=== PATIENT | female | born 1955 | race Caucasian/White ===

== ENCOUNTER 2019-03-13 06:09 | Observation (INO) | payer OTHER ==
[2019-03-13] MEDS ORDERED: ENOXAPARIN SODIUM 40 MG/0.4 ML DISP.SYRIN SQ ONE (06:39)
[2019-03-13] MEDS ORDERED: SCOPOLAMINE HYDROBROMIDE 1.5MG/72HR PATCH TD ONE (06:39)
[2019-03-13] MEDS ORDERED: FAMOTIDINE 20 MG/2 ML VIAL IV ONE ×2 (06:40→08:48)
[2019-03-13] MEDS ORDERED: BUPIV. HCL 0.25% (2.5MG/ML)/EPI. (1:200,000) PF 30 ML VIAL IJ ONE (08:48)
[2019-03-13] MEDS ORDERED: LIDOCAINE HCL 2% PF 100MG/5ML VIAL IJ ONE (08:48)
[2019-03-13] MEDS ORDERED: DEXAMETHASONE SODIUM PHOSPHATE 10 MG/ML VIAL ONE (08:48)
[2019-03-13] MEDS ORDERED: SODIUM CHLORIDE IRRIG SOLUTION 3,000 ML IRRIG.SOLN IR ONE (08:48)
[2019-03-13] MEDS ORDERED: ceFAZolin SODIUM 1 GM VIAL ONE (08:48)
[2019-03-13] MEDS ORDERED: MIDAZOLAM HCL 2 MG/2 ML VIAL ONE (08:48)
[2019-03-13] MEDS ORDERED: LEVALBUTEROL NEB 1.25 MG/3 ML VIAL.NEB NEB ONE (08:48)
[2019-03-13] MEDS ORDERED: LIDOCAINE HCL 1% PF 300MG/30ML VIAL ONE (08:48)
[2019-03-13] MEDS ORDERED: ROCURONIUM BROMIDE 10 MG/ML 5ML VIAL ONE (08:48)
[2019-03-13] MEDS ORDERED: SUGAMMADEX SODIUM 200 MG/2 ML VIAL IV ONE (08:48)
[2019-03-13] MEDS ORDERED: SEVOFLURANE 250 ML LIQUID IH ONE (08:48)
[2019-03-13] MEDS ORDERED: PROPOFOL 200 MG/20 ML VIAL IV ONE (08:48)
[2019-03-13] MEDS ORDERED: HYDROmorphone HCL/PF 1 MG/ML VIAL ONE (09:42)
[2019-03-13] MEDS ORDERED: ONDANSETRON HCL/PF 4 MG/ 2ML VIAL IVP PRN (10:34)
[2019-03-13] MEDS ORDERED: HYDROcodone-ACETAMIN 7.5-325/15ML SOLN UD CUP PO PRN (10:34)
[2019-03-13 10:38] VITALS: BMI 32.1
--- NOTE | 2019-03-13 10:51 | History and Physical Report ---
History of Present Illnes - History of Present Illness Reason for Visit: S/P GASTRIC BAND REMOVAL WITH HIATAL HERNIA REPAIR History of Present Illness: Patient is a 63-year-old female who has tried multiple diets and exercise programs with no success. She has always struggled with her weight. She has tried many diet plans, diet pills, and walking and has not been able to keep it off. Patient and surgeon decided to proceed with gastric band procedure in 2016- patient lost 80 pounds but started having trouble with swallowing and vomiting. It was decided to remove the band. Procedure went well- patient will be monitored in observation status s/p surgical intervention with hiatal hernia rep air. Patient has been on a liquid diet prior to surgery so she is a risk of dehydration s/p surgery. She will be admitted for IV hydration to help hydrate patient until she is able to tolerate a sufficient oral intake, will treat pain with IV medication until patient is able to tolerate oral meds, IV antiemetics to help reduce episodes of nausea and/or vomiting. Patient will be monitored closely using telemetry. - Past Medical History Gastrointestinal: GERD Psych: Anxiety Endocrine: Hypothyroidism, obesity - Past Surgical History Past Surgical History: Cystoscopy, Hysterectomy, Other (Rotator Cuff Repair), Other (Lap Band 2016) - Past Social History Smoke: 1 pack per day Alcohol: None Drugs: None Lives: With Family Domestic Violence: Negative - Health Maintenance Health Maintenance: Cholesterol. denies: Influenza Vaccine Influenza Vaccine: No Pneumonia Vaccine: No Resuscitation Status: Resusciation Status Resuscitation Status Full Code - Unable to Obtain History Unable to Obtain: No Review of Systems - Review of Systems Constitutional: negative: Fever, Chills Eyes: negative: conjunctivae inflammation ENT: negative: Throat Pain Respiratory: negative: Shortness of Breath Cardiovascular: negative: Chest Pain Gastrointestinal: Abdominal Pain. negative: Nausea, Vomiting Genitourinary: negative: Dysuria Musculoskeletal: negative: Back Pain Skin: Other (incision sites x 5). negative: Rash Neurological: negative: Weakness - Medications/Allergies Allergies/Adverse Reactions: Allergies Allergy/AdvReac Type Severity Reaction Status Date / Time No Known Allergies Allergy Unverified 03/13/19 10:34 Home Medications: Home Medications Atorvastatin Calcium 10 mg PO HS 03/13/19 Clonazepam 2 mg PO BID 03/13/19 Levothyroxine Sodium 88 mcg PO 0700 03/13/19 Omeprazole 40 mg PO BID 03/13/19 Venlafaxine HCl [Venlafaxine HCl ER] 75 mg PO DAILY 03/13/19 Venlafaxine HCl [Venlafaxine HCl ER] 150 mg PO DAILY 03/13/19 Current Inpatient Medications: Current Inpatient Medications Hydrocodone Bitart/Acetaminophen (Hycet 7.5-325mg/15 Ml Ud Cup) 30 ml PO Q4 PRN PRN Reason: Moderate Pain (Score 5-7) Stop: 03/17/19 10:33 Atorvastatin Calcium (Lipitor) 10 mg PO HS [facility] Cefazolin Sodium/Dextrose (Ancef 1 Gm/50 Ml-Dextrose) 1 gm IV Q8H [facility] Stop: 03/14/19 00:31 Clonazepam (Klonopin) 2 mg PO BID [facility] Famotidine (Pepcid) 20 mg IVP BID [facility] Stop: 03/17/19 20:59 Sodium Chloride (Normal Saline) 1,000 mls @ 150 mls/hr IV Q8H [facility] Levothyroxine Sodium (Synthroid) 88 mcg PO 0700 [facility] Miscellaneous (Venlafaxine Hcl [Venlafaxine Hcl Er]) 75 mg PO DAILY [facility] Ondansetron HCl (Zofran) 4 mg IVP Q6H PRN PRN Reason: Nausea / Vomiting Stop: 03/17/19 10:33 Exam - Exam Vital Signs: Vital Signs (72 hours) 03/13/19 03/13/19 10:34 10:36 Temperature 97.7 F 97.7 F Pulse Rate [ 93 H 93 H Right Pulse ox] Respiratory 20 20 Rate Blood Pressure 143/74 143/74 [Right Arm] O2 Sat by Pulse 96 96 Oximetry General: Alert, Oriented to Person, Oriented to Place, Oriented to Time, Cooperative, Mild distress, Obese HEENT: PERRLA, Mouth Mucous membr. moist/[place], Nose Mucous membr. moist/[place] Neck: Normal Range of Motion Carotids: no bruit Lungs: Clear to auscultation, Normal air movement, Speaks full Sentences Cardiovascular: Regular rate, Normal S1, Normal S2 Peripheral Edema: none Peripheral Pulses: 2+ Abdomen: Normal bowel sounds, Soft Integumentary: Dry, Pale, Other (Incision site dressings dry/intact) Extremities: No edema, Normal pulses, No tenderness/swelling Neurological: Normal speech, Strength Equal Bilat, Normal tone, Sensation intact Psych/Mental Status: Mental status NL, Mood NL, Appropriate Affect, Intact J udgment Assessment/Plan - Assessment/Plan (1) S/P gastric surgery Status: Acute Current Visit: Yes Plan: Plan to admit for IV hydration, IV pain meds, and IV antiemetics. SCDs to help prevent DVTs, IS and frequent ambulation will be implemented. Start ice chips a nd advance diet as tolerated to full liquids. Will hold lovenox and toradol due to hiatal hernia repair (2) Hypothyroid Status: Acute Current Visit: Yes Plan: Will continue home meds (3) Anxiety Status: Acute Current Visit: Yes Plan: Will continue home meds (4) Hiatal hernia Status: Acute Current Visit: Yes Plan: Plan to admit for IV hydration, IV pain meds, and IV antiemetics. SCDs to help prevent DVTs, IS and frequent ambulation will be implemented. Start ice chips and advance diet as tolerated to full liquids. Will hold lovenox and toradol due to hiatal hernia repair VTE Assessment - RISK FACTOR SCORE VTE RISK FACTOR SCORES: AGE OVER 60 YEARS, OBESITY, SMOKER, MINOR SURGERY/ ANESTHESIA TIME < 1 HOUR - RISK VTE HIGH RISK: SCORE OF 3-4 (RISK PROXIMAL DVT 4-8%) PROPHYLAXIS NEEDED (Frequent ambulation, SCDs while in bed, IS)
[2019-03-13] MEDS ORDERED: NICOTINE 14mg PATCH.TD24 TD PRN (11:15)
[2019-03-13] MEDS: 0.9 % SODIUM CHLORIDE 1,000 ML IV SCH ×3 (11:57→18:38)
[2019-03-13] MEDS ORDERED: ATORVASTATIN CALCIUM 10 MG TABLET PO SCH (21:00)
[2019-03-13] MEDS: FAMOTIDINE 20 MG/2 ML VIAL IVP SCH (21:41)
[2019-03-13] MEDS: clonazePAM 0.5 MG TABLET PO SCH (21:41)
[2019-03-14] MEDS: 0.9 % SODIUM CHLORIDE 1,000 ML IV SCH ×2 (02:02→02:05)
--- NOTE | 2019-03-14 06:34 | Discharge Summary ---
Discharge Summary - Discharge [facility] Admission Date: 03/13/19 Discharge Date: 03/14/19 History of Present Illness: Patient is a 63-year-old female who has tried multiple diets and exercise programs with no success. She has always struggled with her weight. She has tried many diet plans, diet pills, and walking and has not been able to keep it off. Patient and surgeon decided to proceed with gastric band procedure in 2015- patient lost 80 pounds but started having trouble with swallowing and vomiting. It was decided to remove the band. Procedure went well- patient will be monitored in observation status s/p surgical intervention with hiatal hernia repair. Patient has been on a liquid diet prior to surgery so she is a risk of dehydration s/p surgery. She will be admitted for IV hydration to help hydrate patient until she is able to tolerate a sufficient oral intake, will treat pain with IV medication until patient is able to tolerate oral meds, IV antiemetics to help reduce episodes of nausea and/or vomiting. Patient will be monitored closely using telemetry. Condition at Discharge: Stable Home Medications: Ambulatory Orders Medication Instructions Recorded Atorvastatin Calcium 10 mg PO HS 03/13/19 Clonazepam 2 mg PO BID 03/13/19 Levothyroxine Sodium 88 mcg PO 0700 03/13/19 Omeprazole 40 mg PO BID 03/13/19 Venlafaxine HCl [Venlafaxine HCl 75 mg PO DAILY 03/13/19 ER] Venlafaxine HCl [Venlafaxine HCl 150 mg PO DAILY 03/13/19 ER] Consultations this Visit: None Procedures this Visit: None Allergies/Adverse Reactions: Allergies Allergy/AdvReac Type Severity Reaction Status Date / Time No Known Allergies Allergy Unverified 03/13/19 10:34 Discharge Summary: Patient is status post band removal and hiatal hernia repair. She had it placed in 2015 and lost 80 pounds. The procedure went well. She has been very cooperative with her care by ambulating frequently, using her incentive spirometer, and wearing her SCDs while in bed. She has been compliant with her diet during hospitalization. She is having minimal discomfort at this time and minimal nausea- she has is passing gas and belching. She is aware of discharge instructions and what she can and cannot do post surgical- she is aware of how to advance diet after procedure. She has family support and family will be taking her home- medications written by surgeon given to patient. She feels ready to go home. Hospital Course: Patient received pain medications, antiemetics, and IVF and was transitioned to oral. She has been up ambulating and using incentive spirometer. - Final Diagnosis (1) S/P gastric surgery Problems: Band removed with hiatal hernia repair- pt tolerated well. Right or Left: Right (2) Hypothyroid Problems: Stable Right or Left: Right (3) Anxiety Problems: Stable Right or Left: Right (4) Hiatal hernia Problems: Repaired Right or Left: Right
[2019-03-14] MEDS ORDERED: LEVOTHYROXINE SODIUM 88 MCG TABLET PO SCH (07:00)
[2019-03-14 08:19] VITALS: BP 115/71
[2019-03-14] MEDS: clonazePAM 0.5 MG TABLET PO SCH (08:38)
[2019-03-14] MEDS: FAMOTIDINE 20 MG/2 ML VIAL IVP SCH (08:39)
[2019-03-14] MEDS ORDERED: VENLAFAXINE HCL 75 MG PO SCH (09:00)
[2019-03-14] MEDS ORDERED: VENLAFAXINE HCL 37.5 MG CAP.ER.24H PO SCH (09:00)
--- NOTE | 2019-03-17 10:10 | Operative Note ---
PREOPERATIVE DIAGNOSIS: Failed lap band. POSTOPERATIVE DIAGNOSIS: 1. Failed lap band. 2. Hiatal hernia. PROCEDURES PERFORMED: 1. Laparoscopic removal of lap band and port removal. 2. Laparoscopic repair of hiatal hernia. 3. Upper gastrointestinal endoscopy. 4. Laparoscopic repair of gastrotomy. SURGEON: Phil Mendez M.D. INDICATIONS FOR PROCEDURE: Ms. South is a 63-year-old female who had a lap band placed elsewhere three years ago. However, she started to have persistent nausea and vomiting, especially after her meals, and this continued to persist even after un-filling the band. The patient was advised removal of the lap band; however, if she gains weight down the line, she wishes to pursue laparoscopic sleeve gastrectomy as well. DESCRIPTION OF PROCEDURE: After explaining to the patient in detail and informed consent was obtained, the patient was identified in the preoperative holding area. The patient was transferred to the operating room and was placed in supine position. Sequential compressive devices were placed for DVT prophylaxis. Preoperative antibiotics were given. After induction of anesthesia, the abdomen was prepped and draped in a sterile fashion. Through a left upper quadrant 1-cm incision, and using Optiview technique, the peritoneal cavity was entered and pneumoperitoneum created. Thereafter, under direct vision, a 5-mm trocar was placed in the left midabdomen. I had to take down a few adhesions in the upper abdomen to facilitate placement of the other ports. A few adhesions were taken down from the upper abdomen using the ENSEAL. I then placed a 15-mm port in the right midabdomen and another 5-mm trochar was placed in the right subcostal region. Through a 1-cm incision in the epigastrium, a Mark retractor was introduced and the left lobe of the liver was retracted. On initial inspection, there was some scarring noted over the lap band. The adhesions over the lap band were gently dissected off. The lap band was unbuckled and the tubing was divided distal to the hub. The lap band was then removed. I did a capsulectomy on the left side. The gastrogastric plication was gently dissected off. During the dissection, I created a 1-cm gastrotomy. This was closed in two layers using 2-0 Ethibond sutures. Prior to starting the procedure, I did an upper GI endoscopy and I had a suspicion that the patient had a hiatal hernia. The GE junction was noted to be at about 32 cm and there were features suggestive of hiatal hernia. Therefore, I dissected along the left crura. The sac was gently dissected off. I did a circumferential dissection on the left and right crura anteriorly and then posteriorly. After adequate mobilization was done, and had the GE junction well within the abdomen, I then placed a single suture using 2-0 Ethibond and an Endo Stitch posteriorly. Two other sutures were placed on the esophagus and the left and right crura separately to prevent any recurrence of the hernia. Thorough saline irrigation was given. At this point, I repeated the upper GI endoscopy. The scope was introduced into the esophagus and was gradually advanced into the stomach. The GE junction at this point was noted to be at about 37 cm. There were no features to suggest a hiatal hernia. I did an air leak test to make sure there was no leak from the gastrotomy site. The scope was then removed. Absolute hemostasis was ensured. Thorough saline irrigation was given. The Mark retractor was removed. The port site incision was extended by another 2 cm. The port was identified and was gently dissected off the surrounding capsule. The port was removed. This wound was then closed in two layers using 0 Vicryl for the subcutaneous tissues. The skin was closed with 4-0 Monocryl for all the incisions. Dermabond was applied. The patient was stable at the end of the procedure. The patient was awakened from anesthesia and was transferred to the recovery room in stable condition. ESTIMATED BLOOD LOSS: Approximately 25 mL. CONDITION OF THE PATIENT: Stable. FLUIDS GIVEN: Per Anesthesia note. SPECIMEN(S) SENT: Lap band. COMPLICATIONS: Gastrotomy x 1. ANESTHESIA: General. Phil Mendez M.D. DEMETRIO/juan diego (Please copy [facility] provider when applicable) Job #[id number] ILANA
== END 2019-03-14 10:15 | disposition home or self-care (01) ==
LOC: OPSURG 06:09 → SOUTH 10:10
PROVIDERS: ADMIT Nurse Practitioner Family; ATTEND Nurse Practitioner Family
DX: K95.09 Other complications of gastric band procedure (principal); K91.71 Accidental puncture and laceration of a digestive system organ or structure during a digestive system procedure; K44.9 Diaphragmatic hernia without obstruction or gangrene; K66.0 Peritoneal adhesions (postprocedural) (postinfection); R11.2 Nausea with vomiting, unspecified
CPT/HCPCS: 43235; 43281; 43774; A9270; G0378; J0690; J1170; J1650; J2001; J2250; J2704; J7030; J7614

== ENCOUNTER 2019-09-04 07:59 | Day surgery (SDC) | payer OTHER ==
[2019-09-04] MEDS ORDERED: SEVOFLURANE 250 ML LIQUID IH ONE (08:48)
[2019-09-04] MEDS ORDERED: ceFAZolin SODIUM 1 GM VIAL ONE (08:48)
[2019-09-04] MEDS ORDERED: SODIUM CHLORIDE IRRIG SOLUTION 3,000 ML IRRIG.SOLN IR ONE (08:48)
[2019-09-04] MEDS ORDERED: LIDOCAINE HCL 2% PF 100MG/5ML VIAL IJ ONE (08:48)
[2019-09-04] MEDS ORDERED: DEXAMETHASONE SODIUM PHOSPHATE 10 MG/ML VIAL ONE (08:48)
[2019-09-04] MEDS ORDERED: ROCURONIUM BROMIDE 10 MG/ML 5ML VIAL ONE (08:48)
[2019-09-04] MEDS ORDERED: LABETALOL HCL 20 MG/4 ML SYRINGE IV ONE (08:48)
[2019-09-04] MEDS ORDERED: PHENYLEPHRINE HCL 10 MG/1 ML ONE (08:48)
[2019-09-04] MEDS ORDERED: LIDOCAINE HCL 1% PF 300MG/30ML VIAL ONE (08:48)
[2019-09-04] MEDS ORDERED: PROPOFOL 200 MG/20 ML VIAL IV ONE (08:48)
[2019-09-04] MEDS ORDERED: MIDAZOLAM HCL 2 MG/2 ML VIAL ONE (08:48)
[2019-09-04] MEDS ORDERED: SUGAMMADEX SODIUM 200 MG/2 ML VIAL IV ONE (08:48)
[2019-09-04] MEDS ORDERED: BUPIV. HCL 0.25% (2.5MG/ML)/EPI. (1:200,000) PF 10 ML VIAL IM ONE (08:48)
[2019-09-04] MEDS ORDERED: ONDANSETRON HCL/PF 4 MG/ 2ML VIAL ONE (08:48)
[2019-09-04] MEDS ORDERED: LACTATED RINGERS 1,000 ML IV ONE (11:15)
[2019-09-04] MEDS ORDERED: HYDROmorphone HCL/PF 1 MG/ML VIAL ONE (11:44)
--- NOTE | 2019-09-08 17:37 | Operative Note ---
PROCEDURE DATE: 09/04/2019 PREOPERATIVE DIAGNOSIS: 1. Morbid obesity. 2. Gastroesophageal reflux disease. 3. Hyperlipidemia. POSTOPERATIVE DIAGNOSIS: 1. Morbid obesity. 2. Gastroesophageal reflux disease. 3. Hyperlipidemia. PROCEDURES PERFORMED: 1. Laparoscopic vertical sleeve gastrectomy. 2. Laparoscopic lysis of adhesions. 3. Upper gastrointestinal endoscopy. SURGEON: Phil Mendez M.D. INDICATIONS FOR PROCEDURE: Ms. South is a 63-year-old female who presented with features of morbid obesity. She has a history of lap band placement which was removed a few months ago. She also has gastroesophageal reflux disease and hyperlipidemia. She was noted to have a weight of 227 pounds with a BMI of 42.7 with the above-listed comorbidities. The patient was advised laparoscopic vertical sleeve gastrectomy. The patient showed understanding and agreed to proceed. DESCRIPTION OF PROCEDURE: After explaining to the patient in detail and informed consent was obtained, the patient was identified in the preoperative holding area. The patient was transferred to the operating room and was placed in supine position. Sequential compressive devices were placed for DVT prophylaxis. Preoperative antibiotics were given. After induction of anesthesia, the abdomen was prepped and draped in a sterile fashion. Through a left upper quadrant 1-cm incision, and using Optiview technique, the peritoneal cavity was entered and pneumoperitoneum was created. Thereafter, under direct vision, another 5-mm trocar was placed in the left midabdomen and another 15-mm trocar was placed in the right midabdomen. Through a 1-cm incision in the right subcostal region, another 5-mm trocar was placed. Through a 1-cm incision in the epigastrium, a Mark retractor was introduced and the left lobe of the liver was retracted. On initial inspection, the patient was noted to have no evidence of hiatal hernia. I took down the gastroepiploic vessels using a LigaSure. This was continued superiorly. The short gastric vessels were taken down. The gastrophrenic ligament was divided and the Angle of His was mobilized. The posterior attachments of the stomach on the pancreas were released. Distally, the gastroepiploic vessels were taken down up to about 4 cm proximal to the pylorus. At this point, a #38 Romansh Hurst Bougie was introduced into the stomach and was placed along the lesser curve. The stomach was then divided in a vertical fashion with multiple Endo ONESIMO Covidien Black Load Staplers. The first firing was directed outwards towards the greater curvature. Subsequent firings were directed towards the Angle of His to create a loose sleeve around the #38 Romansh bougie. The bougie was then removed and an upper GI endoscopy was performed at this point. The scope was introduced into the esophagus and was gradually advanced into the stomach. The GE junction appeared normal. The sleeve size appeared normal. No evidence of any active bleeding was noted. The stomach was insufflated with air and irrigation of fluid along the staple line revealed no evidence of air leak. The stomach was then suctioned out and the scope was removed. Absolute hemostasis was ensured. Thorough saline irrigation was given. The Mark retractor was removed. Approximately 10 mL of a lidocaine- Marcaine mix was instilled under the left hemidiaphragm. The sleeve gastrectomy specimen was removed. The abdomen was then deflated. The incisions were closed with 4-0 Monocryl. Dermabond was applied. Approximately 10 mL of a lidocaine- Marcaine mix was injected into all the incisions. The patient was awakened from anesthesia and was transferred to the recovery room in stable condition. The patient was noted to have a few adhesions in the upper part of the stomach from the previous lap band surgery initially which had to be taken down using sharp and blunt dissection. There was a small 2-cm liver laceration during this part of the dissection, which there was no active bleeding that was noted. ESTIMATED BLOOD LOSS: Approximately 20 mL. CONDITION OF THE PATIENT: Stable. FLUIDS GIVEN: Per Anesthesia note. SPECIMEN(S) SENT: Sleeve gastrectomy specimen. COMPLICATIONS: None. ANESTHESIA: General. Phil Mendez M.D. DEMETRIO/juan diego (Please copy [facility] provider when applicable) Job #[id number] ILANA
== END 2019-09-04 12:20 | disposition other institution (70) ==
LOC: OPSURG 07:59
PROVIDERS: ATTEND Surgery
DX: E66.01 Morbid (severe) obesity due to excess calories (principal); Z68.41 Body mass index [BMI] 40.0-44.9, adult; I10 Essential (primary) hypertension; K21.9 Gastro-esophageal reflux disease without esophagitis; E78.5 Hyperlipidemia, unspecified
CPT/HCPCS: 43235; 43775; 88305; J0690; J1170; J2001; J2250; J2370; J2405; J2704; J7120

== ENCOUNTER 2019-09-04 12:21 | Inpatient (IN) | payer OTHER ==
[2019-09-04] MEDS ORDERED: PROMETHAZINE HCL 25 MG in 0.9 % SODIUM CHLORIDE 50 ML IV PRN (12:27)
[2019-09-04] MEDS ORDERED: HYDROcodone-ACETAMIN 7.5-325/15ML SOLN UD CUP PO PRN (12:27)
[2019-09-04] MEDS ORDERED: IPRATROPIUM/ALBUTEROL SULFATE 3 ML AMPUL.NEB NEB PRN (12:27)
[2019-09-04] MEDS ORDERED: ONDANSETRON HCL/PF 4 MG/ 2ML VIAL IVP PRN (12:27)
[2019-09-04] MEDS ORDERED: MORPHINE SULFATE 2 MG/ML VIAL IV PRN (12:27)
--- NOTE | 2019-09-04 12:32 | History and Physical Report ---
History of Present Illnes - History of Present Illness Reason for Visit: S/P LSG History of Present Illness: Patient is a 63-year-old female who has tried multiple diets and exercise programs with no success. She has always struggled with her weight ever since having children. She has had the gastric band with no success. Patient and surgeon decided to proceed with gastric sleeve procedure. Procedure went well- Patient has been on a liquid diet prior to surgery so she is a risk of dehydration s/p surgery. She will be admitted for IV hydration to help hydrate patient until he is able to tolerate a sufficient oral intake, will treat pain with IV medication until patient is able to tolerate oral meds, IV antiemetics to help reduce episodes of nausea and/or vomiting. Patient will be monitored closely using telemetry s/p surgery d/t shortness of breath on exertion. Will encourage incentive spirometer for morbid obesity and SOA. Will also monitor Patient appears very uncomfortable s/p surgery. - Past Medical History Cardiac: Hyperlipidemia Pulmonary: Other (SOA with exertion) Gastrointestinal: GERD Psych: Anxiety Endocrine: Hypothyroidism, obesity Grav: 2 Para: 2 - Past Surgical History Past Surgical History: Cystoscopy, Hysterectomy, Other (Rotator Cuff Repair), Other (Lap Band 2016) - Past Family History Mother Family History: DM, Hyperlipidemia, Other (Obesity) Father Family History: CAD - Past Social History Smoke: 1 pack per day, Quit (06/2019) Alcohol: None Drugs: None Lives: With Family Domestic Violence: Negative - Health Maintenance Health Maintenance: Cholesterol. denies: Influenza Vaccine Influenza Vaccine: No Pneumonia Vaccine: No Resuscitation Status: Resusciation Status Resuscitation Status Full Code Review of Systems - Review of Systems Constitutional: negative: Fever, Chills Eyes: negative: pain ENT: negative: Nose Discharge, Throat Pain Respiratory: SOB with Excertion Cardiovascular: negative: Chest Pain, Light Headedness Gastrointestinal: Nausea, Vomiting, Abdominal Pain Genitourinary: negative: Dysuria Musculoskeletal: negative: Back Pain Skin: Other (abdominal incisions ) Neurological: Weakness - Medications/Allergies Allergies/Adverse Reactions: Allergies Allergy/AdvReac Type Severity Reaction Status Date / Time No Known Allergies Allergy Unverified 03/13/19 10:34 Home Medications: Home Medications Ergocalciferol (Vitamin D2) [Vitamin D2] 50,000 unit PO WEEK 10/24/19 Exam - Exam General: Alert, Oriented to Person, Oriented to Place, Moderate distress, Morbidly Obese HEENT: Atraumatic, PERRLA, Mouth Mucous membr. moist/[place], Nose Mucous membr. moist/[place] Neck: Normal Range of Motion Carotids: No bruit Lungs: Clear to auscultation, Normal air movement Cardiovascular: Regular rate, Normal S1, Normal S2 Peripheral Edema: None Abdomen: Soft Integumentary: Warm, Dry, Pale, Other (abdominal incisions x 5 without redness/erythema/drainage; skin adhesive intact) Extremities: No edema, Normal pulses, No tenderness/swelling Neurological: Strength Equal Bilat, Generalized Weakness Psych/Mental Status: Mental status NL, Mood NL, Appropriate Affect, Intact Judg ment Assessment/Plan - Assessment/Plan (1) S/P laparoscopic sleeve gastrectomy Status: Acute Current Visit: Yes Plan: Plan to admit for IV hydration, IV pain meds, and IV antiemetics. Lovenox and SCDs to help prevent DVTs, IS and frequent ambulation will be implemented. Start ice chips and advance diet as tolerated. IV pepcid BID (2) Morbid obesity due to excess calories Status: Acute Current Visit: Yes Plan: Patient is s/p gastric sleeve. We will assist patient with implementing gastric sleeve diet protocol starting with ice chips and clear liquids and advancing as tolerated (3) GERD (gastroesophageal reflux disease) Status: Acute Current Visit: Yes Plan: Will give Pepcid 20mg IV BID (4) Hyperlipidemia Status: Acute Current Visit: Yes Plan: Stable; will monitor and hold medication at this time until N/V improves (5) Depression Status: Acute Current Visit: Yes Plan: Stable; will monitor closely; will hold meds until patient is able to tolerate PO (6) Nausea and vomiting Status: Acute Current Visit: Yes Plan: Pepcid IV BID ordered; IV antiemetics, and IVF (7) Hypothyroid Status: Acute Current Visit: No Plan: Stable; will monitor and hold medication at this time until N/V improves VTE Assessment - RISK FACTOR SCORE VTE RISK FACTOR SCORES: AGE OVER 60 YEARS, OBESITY, SMOKER - RISK VTE HIGH RISK: SCORE OF 3-4 (RISK PROXIMAL DVT 4-8%) PROPHYLAXIS NEEDED (Loveno x daily, Incentive spirometer, frequent ambulation, SCDs while in bed.)
[2019-09-04] MEDS: 0.9 % SODIUM CHLORIDE 1,000 ML IV SCH ×2 (18:09→21:13)
[2019-09-04] MEDS: ceFAZolin SODIUM 1 GM in 0.9 % SODIUM CHLORIDE 50 ML IV SCH (18:11)
[2019-09-04 18:33] VITALS: BMI 39.5
[2019-09-04] MEDS: FAMOTIDINE 20 MG/2 ML VIAL IVP SCH (21:14)
[2019-09-05] MEDS: ceFAZolin SODIUM 1 GM in 0.9 % SODIUM CHLORIDE 50 ML IV SCH (01:30)
[2019-09-05] MEDS: 0.9 % SODIUM CHLORIDE 1,000 ML IV SCH ×4 (04:12→23:48)
[2019-09-05 05:47] LABS: BASOPHILS % 0.3 % (0.0-1.5)
--- NOTE | 2019-09-05 06:06 | Inpatient Progress Note ---
Subjective - Required Recertification Statement I anticipate X number of days because-include discharge plan: 1 - Review of Systems Events since last encounter: Patient is lying in bed this morning awake. She states that she did not get much sleep. She was having a lot of discomfort last night. She states that pain is improving. She has had some nausea and moderate discomfort from the gas. She denies any chest pain or shortness of breath. She has been up ambulating in the halls and using incentive spirometer while awake. She is compliant with care. General: Denies: Chills, Night Sweats HEENT: Denies: Head Aches, Sore Throat Pulmonary: Denies: Dyspnea Cardiovascular: Denies: Chest Pain Gastrointestinal: Nausea, Vomiting, Abdominal Pain Genitourinary: Denies: Dysuria Musculoskeletal: Denies: Back Pain Neurological: Weakness Objective - Exam Vitals and I&O: Vital Signs Temp 96.4 F L 09/05/19 02:00 Pulse 77 09/05/19 05:25 Resp 20 09/05/19 05:25 BP 128/65 09/05/19 02:00 Pulse Ox 94 09/05/19 05:25 Intake & Output 09/04/19 09/04/19 09/05/19 11:59 23:59 11:59 Intake Total 240 960 Output Total 950 0 Balance -710 960 Weight 95 kg Intake: IV 900 Left Hand 900 Oral 240 60 Output: Urine 950 0 Other: Voiding Method Toilet Toilet General: Alert, Oriented to Person, Oriented to Place, Oriented to Time, Cooperative, Mild distress, Morbidly Obese HEENT: Atraumatic, PERRLA, Mouth Mucous membr. moist/[place], Nose Mucous membr. moist/[place] Neck: Supple, +2 carotid pulse wo bruit Lungs: Clear to auscultation, Normal air movement, Speaks full Sentences Cardiovascular: Regular rate, Normal S1, Normal S2 Abdomen: Soft, Decreased Bowel Sounds Extremities: No edema, Normal pulses, No tenderness/swelling Skin: Normal, Warm, Dry, Pale, Other (incisions are without redness/erythema/drainage: skin adhesive intact) Neurological: Normal gait, Normal speech, Strength Equal Bilat, Sensation intact, Generalized Weakness Psych/Mental Status: Mental status NL, Mood NL, Appropriate Affect - Results Results: Laboratory Results WBC 9.80 K/ul (4.00-12.00) 09/05/19 05:00 RBC 3.84 M/ul (3.90-5.20) L 09/05/19 05:00 Hgb 11.8 g/dL (11.5-16.0) 09/05/19 05:00 Hct 34.2 % (34.5-46.5) L 09/05/19 05:00 MCV 89.0 fl (80.0-100.0) 09/05/19 05:00 MCH 30.8 pg (28.0-34.0) 09/05/19 05:00 MCHC 34.6 g/dL (30.0-36.0) 09/05/19 05:00 RDW 14.7 % (11.3-14.3) H 09/05/19 05:00 Plt Count 220 K/mm3 (130-400) 09/05/19 05:00 Neut % (Auto) 81.0 % (39.0-79.0) H 09/05/19 05:00 Lymph % (Auto) 11.6 % (16.0-50.0) L 09/05/19 05:00 [place] % (Auto) 6.5 % (0.0-11.0) 09/05/19 05:00 Eos % (Auto) 0.6 % (0.0-6.8) 09/05/19 05:00 Baso % (Auto) 0.3 % (0.0-1.5) 09/05/19 05:00 Neut # (Auto) 8.0 # k/uL (1.4-7.7) H 09/05/19 05:00 Lymph # (Auto) 1.1 # k/uL (0.6-4.0) 09/05/19 05:00 [place] # (Auto) 0.6 # k/uL (0.0-0.9) 09/05/19 05:00 Eos # (Auto) 0.1 # k/uL (0.0-0.6) 09/05/19 05:00 Baso # (Auto) 0.0 # k/uL (0.0-0.5) 09/05/19 05:00 Assessment/Plan - Assessment/Plan (1) S/P laparoscopic sleeve gastrectomy Status: Acute Assessment: Patient experiencing nausea; has been ambulating, wearing SCDs while in bed, using incentive spirometry, patient receiving lovenox to prevent DVT Plan: Patient getting IV fluids for hydration, IV pain meds, and IV antiemetics. Lovenox and SCDs to help prevent DVTs, IS and frequent ambulation will be implemented. Patient eating ice chips and will advance diet to clear liquids as tolerated once nausea and vomiting is controlled. Will continue with Pepcid IV BID for GI upset (2) Morbid obesity due to excess calories Status: Acute Assessment: Patient tolerating ice chips and water; some nausea Plan: Will advance diet to clear liquids today (3) GERD (gastroesophageal reflux disease) Status: Acute Assessment: Patient having some nausea and reflux Plan: Will continue with Pepcid IV 20mg BID (4) Hyperlipidemia Status: Acute Assessment: Stable Plan: Hold medications at this time (5) Depression Status: Acute Assessment: Stable Plan: Will hold meds at this time (6) Nausea and vomiting Status: Acute Assessment: Patient having nausea; able to sip on fluids Plan: Will continue with Zofran and phenergan (7) Hypothyroid Status: Acute Assessment: Stable Plan: Will hold meds at this time
[2019-09-05 06:15] LABS: eGFR (Non-African) > 60
[2019-09-05] MEDS: ACETAMINOPHEN 1,000 MG/100 ML INJ IV PRN ×2 (08:31→20:28)
[2019-09-05] MEDS: FAMOTIDINE 20 MG/2 ML VIAL IVP SCH ×2 (08:32→20:25)
[2019-09-05] MEDS: ENOXAPARIN SODIUM 40 MG/0.4 ML DISP.SYRIN SQ SCH (15:08)
[2019-09-06] MEDS: 0.9 % SODIUM CHLORIDE 1,000 ML IV SCH (05:57)
[2019-09-06] MEDS: ACETAMINOPHEN 1,000 MG/100 ML INJ IV PRN (08:16)
[2019-09-06] MEDS: ENOXAPARIN SODIUM 40 MG/0.4 ML DISP.SYRIN SQ SCH (08:16)
[2019-09-06] MEDS: FAMOTIDINE 20 MG/2 ML VIAL IVP SCH (08:20)
--- NOTE | 2019-09-06 08:55 | Discharge Summary ---
Discharge Summary - Discharge [facility] Admission Date: 09/04/19 Discharge Date: 09/06/19 Discharge To: Home History of Present Illness: 63 year old female admitted for gastric sleeve on 09/04 due to inability to lose weight with diet, exercise and other measures. Surgery performed by Dr. Mendez and no complications were noted. Condition at Discharge: Stable Home Medications: Ambulatory Orders Medication Instructions Recorded Atorvastatin Calcium 10 mg PO HS 03/13/19 Clonazepam 2 mg PO BID 03/13/19 Levothyroxine Sodium 88 mcg PO 0700 03/13/19 Omeprazole 40 mg PO DAILY 03/13/19 Venlafaxine HCl [Venlafaxine HCl 75 mg PO DAILY 03/13/19 ER] Venlafaxine HCl [Venlafaxine HCl 150 mg PO DAILY 03/13/19 ER] Ergocalciferol (Vitamin D2) 50,000 unit PO WEEK 09/04/19 [Vitamin D2] Consultations this Visit: Other (Hospitalist/PT/OT) Procedures this Visit: Other (Gastric Sleeve) Allergies/Adverse Reactions: Allergies Allergy/AdvReac Type Severity Reaction Status Date / Time No Known Allergies Allergy Unverified 03/13/19 10:34 Patient Problems: Current Active Problems Problem Status Onset Depression Acute GERD (gastroesophageal reflux disease) Acute Hyperlipidemia Acute Morbid obesity due to excess calories Acute Nausea and vomiting Acute S/P laparoscopic sleeve gastrectomy Acute Discharge Summary: She is up and ambulating well today. She will be discharged to home to resume all of her previous medications. Prescriptions for phenergan 6.25 mg/5ml 10 ml q6h prn nausea and hydrocodone syrup 7.5 mg/15 ml 10 ml po q6h prn pain are written. Follow up with Dr. Mendez as scheduled. Hospital Course: See above
[2019-09-06 09:19] VITALS: BP 161/90
== END 2019-09-06 09:50 | disposition home or self-care (01) | DRG 620 ==
LOC: SOUTH 12:21
PROVIDERS: ADMIT Family Medicine; ATTEND Nurse Practitioner Family
PROC: 0DB64Z3 Excision of Stomach, Percutaneous Endoscopic Approach, Vertical (ICD-10-PCS; principal; 2019-09-04)
DX: E66.01 Morbid (severe) obesity due to excess calories (principal); K91.71 Accidental puncture and laceration of a digestive system organ or structure during a digestive system procedure; E78.5 Hyperlipidemia, unspecified; K21.9 Gastro-esophageal reflux disease without esophagitis; F41.9 Anxiety disorder, unspecified; F32.9 Major depressive disorder, single episode, unspecified; E03.9 Hypothyroidism, unspecified; Z90.710 Acquired absence of both cervix and uterus; Z68.41 Body mass index [BMI] 40.0-44.9, adult; Z82.49 Family history of ischemic heart disease and other diseases of the circulatory system; Z83.3 Family history of diabetes mellitus; Z87.891 Personal history of nicotine dependence; Z79.899 Other long term (current) drug therapy; Z79.890 Hormone replacement therapy; Y83.6 Removal of other organ (partial) (total) as the cause of abnormal reaction of the patient, or of later complication, without mention of misadventure at the time of the procedure; Y92.234 Operating room of hospital as the place of occurrence of the external cause; Z90.49 Acquired absence of other specified parts of digestive tract
CPT/HCPCS: 80053; 85025; 97116; 97161; 97165; 97530; A9270; J0690; J1650; J7030; 99221; 99231; 99238